=== PATIENT | female | born 1970 | race Caucasian/White ===

== ENCOUNTER 2020-09-14 12:23 | Emergency (ER) | payer MEDICARE ==
[~2020-09-14 12:23] MED LIST: MACROBID 100 M100 MG PO; PENVEE K 500 M500 MG PO; PHENERGAN 12.12.5 MG PR; TAMIFLU75 MG PO; ZOFRAN ODT 4 MG4 MG PO
[2020-09-14 13:30] LABS: RED BLOOD COUNT 4.42 M/UL (4.00-5.10); WHITE BLOOD COUNT 3.1 K/UL (4.5-11.0)
[2020-09-14 13:48] LABS: BUN/CREATININE RATIO 17 (0-10)
[2020-09-14] MEDS ORDERED: ZOFRAN ODT 4 MG4 MG SL (14:19)
== END 2020-09-14 14:40 | disposition home or self-care (01) ==
LOC: ER1 12:23
PROVIDERS: Emergency Medicine
DX: K70.9 Alcoholic liver disease, unspecified (principal); R74.01 Elevation of levels of liver transaminase levels; I10 Essential (primary) hypertension; G35 Multiple sclerosis
CPT/HCPCS: 80053; 81001; 83690; 85025; 96374; 99284; J2405; J7030

== ENCOUNTER 2021-01-18 16:56 | Emergency (ER) | payer MEDICARE ==
[~2021-01-18 16:56] MED LIST changes: +ZOFRAN ODT 4 MG4 MG SL
== END 2021-01-18 19:02 | disposition left against medical advice (07) ==
LOC: ER1 16:56
DX: Z53.21 Procedure and treatment not carried out due to patient leaving prior to being seen by health care provider (principal)

== ENCOUNTER 2021-01-28 17:02 | Emergency (ER) | payer MEDICARE ==
[2021-01-28 18:20] LABS: HEMOGLOBIN 10.5 gm/dl (12.3-15.3); RED BLOOD COUNT 4.21 M/UL (4.00-5.10); WHITE BLOOD COUNT 4.1 K/UL (4.5-11.0)
[2021-01-28 18:30] LABS: BUN/CREATININE RATIO 8 (0-10)
== END 2021-01-28 20:06 | disposition home or self-care (01) ==
LOC: ER1 17:02
PROVIDERS: Physician Assistant
DX: R41.0 Disorientation, unspecified (principal); Z98.84 Bariatric surgery status; I10 Essential (primary) hypertension
CPT/HCPCS: 80053; 82550; 82553; 83874; 84484; 85025; 93005; 99285; G0480

== ENCOUNTER 2021-03-07 04:19 | Emergency (ER) | payer MEDICARE ==
[2021-03-07 05:03] LABS: RED BLOOD COUNT 4.11 M/UL (4.00-5.10); WHITE BLOOD COUNT 2.2 K/UL (4.5-11.0)
[2021-03-07 05:25] LABS: BUN/CREATININE RATIO 15 (0-10)
== END 2021-03-07 06:45 | disposition home or self-care (01) ==
LOC: ER1 04:19
PROVIDERS: Student in an Organized Health Care Education/Training Program
DX: U07.1 COVID-19 (principal); E87.6 Hypokalemia; I10 Essential (primary) hypertension; Z86.19 Personal history of other infectious and parasitic diseases
CPT/HCPCS: 71045; 80053; 82550; 82553; 83874; 84484; 85025; 99284

== ENCOUNTER → 2021-04-09 | Outpatient (CLI) | payer MEDICARE | LOC: MRI 12:52 | DX: G35 Multiple sclerosis (principal); R90.89 Other abnormal findings on diagnostic imaging of central nervous system | CPT/HCPCS: 36415; 70553; 82565; A9577 ==

== ENCOUNTER 2021-11-07 14:08 | Emergency (ER) | payer MEDICARE ==
[2021-11-07 15:42] LABS: HEMOGLOBIN 10.2 gm/dl (12.3-15.3); RED BLOOD COUNT 4.08 M/UL (4.00-5.10); WHITE BLOOD COUNT 3.1 K/UL (4.5-11.0)
[2021-11-07 16:21] LABS: BUN/CREATININE RATIO 8 (0-10)
== END 2021-11-07 18:55 | disposition left against medical advice (07) ==
LOC: ER1 14:08
PROVIDERS: Student in an Organized Health Care Education/Training Program
DX: F10.10 Alcohol abuse, uncomplicated (principal); F15.10 Other stimulant abuse, uncomplicated; Y90.4 Blood alcohol level of 80-99 mg/100 ml; I10 Essential (primary) hypertension; F17.200 Nicotine dependence, unspecified, uncomplicated
CPT/HCPCS: 70450; 71045; 80053; 80307; 81001; 82550; 82553; 84484; 85025; 99283; G0480; Q9967

== ENCOUNTER 2021-12-06 13:39 | Emergency (ER) | payer MEDICARE | END 2021-12-06 15:46 | disposition left against medical advice (07) | LOC: ER1 13:39 | DX: Z53.21 Procedure and treatment not carried out due to patient leaving prior to being seen by health care provider (principal) ==

== ENCOUNTER 2021-12-27 15:19 | Emergency (ER) | payer MEDICARE ==
[2021-12-27 15:57] LABS: HEMOGLOBIN 9.8 gm/dl (12.3-15.3); RED BLOOD COUNT 3.17 M/UL (4.00-5.10); WHITE BLOOD COUNT 5.9 K/UL (4.5-11.0)
[2021-12-27 16:22] LABS: BUN/CREATININE RATIO 9 (0-10)
[2021-12-28 10:40] LABS: HEMOGLOBIN 9.1 gm/dl (12.3-15.3); RED BLOOD COUNT 2.95 M/UL (4.00-5.10)
[2021-12-28 10:41] LABS: WHITE BLOOD COUNT 4.2 K/UL (4.5-11.0)
[2021-12-28 11:00] LABS: BUN/CREATININE RATIO 9 (0-10)
[2021-12-29 02:15] LABS: CANDIDA ALBICANS Not Detected (Negative); CANDIDA KRUSEI Not Detected (Negative); CANDIDA TROPICALIS Not Detected (Negative); ESCHERICHIA COLI Not Detected (Negative); HAEMOPHILUS INFLUENZAE Not Detected (Negative); KLEBSIELLA OXYTOCA Not Detected (Negative); KLEBSIELLA PNEUMONIAE Not Detected (Negative); KPC-CARBAPENEM-RESISTANCE GENE Not Detected (Negative); PROTEUS Not Detected (Negative); PSEUDOMONAS AERUGINOSA Not Detected (Negative); SERRATIA MARCESANS Not Detected (Negative); STAPHYLOCOCCUS AUREUS Not Detected (Negative); STREP AGALACTIAE (GROUP B) Not Detected (Negative); STREP PYOGENES (GROUP A) Not Detected (Negative); STREPTOCOCCUS Not Detected (Negative); vanA/B (VANCOMYCIN RESIST GENE Not Detected (Negative)
[2021-12-29 03:36] LABS: STAPHYLOCOCCUS DETECTED (Negative)
[2021-12-31 17:09] LABS: HBSAG SCREEN Negative (Negative); HCV AB >11.0 (0.0-0.9); HCV LOG10 1.954 (.); HEP A AB, IGM Negative (Negative); HEP B CORE AB, IGM Negative (Negative); HEPATITIS C QUANTITATION 90 IU/mL (.)
== END 2021-12-29 01:08 | disposition left against medical advice (07) ==
LOC: ER1 15:19
PROVIDERS: Physician Assistant; Student in an Organized Health Care Education/Training Program
DX: J90 Pleural effusion, not elsewhere classified (principal); K74.60 Unspecified cirrhosis of liver; E87.6 Hypokalemia; D64.9 Anemia, unspecified; I10 Essential (primary) hypertension; Z20.822 Contact with and (suspected) exposure to COVID-19
CPT/HCPCS: 0240U; 71045; 80053; 80074; 81001; 82550; 82553; 84484; 85025; 85610; 85730; 87040; 87077; 87086; 87150; 87186; 93005; 96374; 96375; 96376; 99285; J2060; J2405; Q9967